=== PATIENT | female | born 1960 | race African-American/Black ===

== ENCOUNTER 2021-05-14 18:32 | Emergency (ER) | payer OTHER ==
[~2021-05-14] VITALS: Ht 165.1 cm; Wt 89.0 kg
[2021-05-14] MEDS ORDERED: KETOROLAC 30MG/ML VIAL IV STA (18:55)
[2021-05-14] MEDS ORDERED: SODIUM CHLORIDE 0.9% 1,000 ML IV ONE (19:00)
[2021-05-14 19:53] LABS: BASOPHILS % 0.7 % (0.0-2.0); EOSINOPHILS % 0.3 % (0.0-5.0); HEMATOCRIT. 43.6 % (36.0-48.0); HEMOGLOBIN. 14.8 g/dL (12.0-16.0); MEAN CORPUSCULAR HEMOGLOBIN 29.1 pg (28.0-32.0); MEAN CORPUSCULAR VOLUME 85.8 fL (81.0-99.0); MONOCYTES % 6.7 % (2.0-8.0); NEUTROPHILS % 68.3 % (40.0-76.0); PLATELET 365 x1000/uL (130-400); RED BLOOD CELL COUNT 5.08 mill/uL (4.2-5.4); RED CELL DISTRIBUTION WIDTH 12.6 % (11.6-14.6)
[2021-05-14 19:58] LABS: CHLORIDE 103 mEq/L (98-107)
[2021-05-14 20:02] LABS: ETHANOL BLOOD < 10 mg/dL
[2021-05-14 20:03] LABS: PARTIAL THROMBOPLASTIN TIME 23.3 sec (23.4-31.0); PROTHROMBIN TIME 10.9 sec (9.6-11.0)
[2021-05-14] MEDS ORDERED: ONDANSETRON HCL 4MG/2ML INJ IV ONE (22:00)
[2021-05-14] MEDS ORDERED: ASPIRIN 81MG TABLET PO ONE (22:00)
[2021-05-14 22:22] LABS: METHADONE URINE SCREEN NEGATIVE (NEGATIVE); OPIATES URINE SCREEN NEGATIVE (NEGATIVE); PHENCYCLIDINE URINE SCREEN NEGATIVE (NEGATIVE)
[2021-05-14 22:23] LABS: *AMPHETAMINES SCREEN URINE NEGATIVE (NEGATIVE); *BARBITURATES SCREEN URINE NEGATIVE (NEGATIVE); *BENZODIAZEPINES SCREEN URINE NEGATIVE (NEGATIVE); *COCAINE SCREEN URINE NEGATIVE (NEGATIVE); CANNABINOID URINE SCREEN PRESUMTIVE POSITIVE (NEGATIVE)
[2021-05-14] MEDS ORDERED: POTASSIUM CHLORIDE 20MEQ TABLET SR PO ONE (22:30)
[2021-05-15 00:12] VITALS: BP 147/68
== END 2021-05-15 00:23 | disposition short-term general hospital (02) ==
LOC: ER 18:32
DX: Z04.1 Encounter for examination and observation following transport accident (principal); R55 Syncope and collapse; Z20.822 Contact with and (suspected) exposure to COVID-19; M43.6 Torticollis; R73.9 Hyperglycemia, unspecified; E87.6 Hypokalemia
CPT/HCPCS: 36415; 70450; 71045; 80053; 80305; 80320; 82962; 83880; 84484; 85025; 85610; 85730; 87426; 93005; 96361; 96374; 96375; 99285; J1885; J2405; J7030; Z7610; G0480